=== PATIENT | female | born 1970 | race African-American/Black ===

== ENCOUNTER 2021-02-02 21:47 | Emergency (ER) | payer SELFPAY ==
[~2021-02-02] VITALS: Ht 172.7 cm; Wt 113.6 kg
[2021-02-02 23:32] LABS: COLLECTION METHOD CLEAN CATCH
[2021-02-02 23:37] LABS: PH 6 (5-8); SQUAMOUS EPITHELIAL None Seen /hpf; URINE APPEARANCE Clear; URINE BACTERIA None Seen /hpf; URINE BILIRUBIN Negative (NEGATIVE); URINE BLOOD 1+ (NEGATIVE); URINE COLOR Colorless; URINE GLUCOSE Negative (NEGATIVE); URINE KETONE Negative (NEGATIVE); URINE LEUKOCYTE ESTERASE Negative (NEGATIVE); URINE NITRATE Negative (NEGATIVE); URINE PROTEIN(semi-quant) Negative (NEGATIVE); URINE RBC 0-2 /hpf; URINE UROBILINOGEN Negative (NEGATIVE)
[2021-02-02 23:51] LABS: BASO % 0.5 % (0.0-2.0); EOS % 0.5 % (0-4.0); GRAN # 4.4 (1.4-6.5); GRAN % 75.3 % (42.2-75.2); HEMATOCRIT 32.5 % (37.0-47.0); HEMOGLOBIN 9.8 g/dl (12.5-16.0); LYMPH # 0.5 (1.2-3.4); LYMPH % 7.9 % (20.0-51.0); MEAN CELL VOLUME 66 fl (80.0-100.0); MEAN CORPUSCULAR HEMOGLOBIN 20 pg (27.0-31.0); MEAN CORPUSCULAR HGB CONC 30 g/dl (33.0-37.0); MEAN PLATELET VOLUME 10.4 fl (7.4-10.4); MONO # 0.9 (0.1-0.6); MONO % 15.3 % (1.7-9.3); PLATELET COUNT 340 K/mm3 (130-400); RED BLOOD COUNT 4.95 M/mm3 (4.10-5.30); REDCELL DISTRIBUTION WIDTH-CV 18.4 % (11.5-14.5)
[2021-02-03 00:06] LABS: ALBUMIN 4.1 gm/dL (3.5-5.0); BILIRUBIN,TOTAL 0.2 mg/dL (0.0-1.0); CALCIUM 9.2 mg/dL (8.4-10.2); CREATININE, serum 0.8 (0.52-1.25); POTASSIUM 3.9 mmol/L (3.4-5.0)
[2021-02-03 00:53] VITALS: BP 158/91; PULSE 100; TEMP 98.3
== END 2021-02-03 00:55 | disposition home or self-care (01) ==
LOC: COL.ER 21:47
PROVIDERS: Emergency Medicine Emergency Medical Services
DX: U07.1 COVID-19 (principal)

== ENCOUNTER 2021-02-08 20:01 | Emergency (ER) | payer SELFPAY ==
[~2021-02-08] VITALS: Ht 172.7 cm; Wt 118.2 kg
[2021-02-08 20:18] VITALS: TEMP 99
[2021-02-08 21:09] LABS: COLLECTION METHOD CLEAN CATCH
[2021-02-08 21:12] LABS: BASO % 0.2 % (0.0-2.0); GRAN # 2.4 (1.4-6.5); GRAN % 59.4 % (42.2-75.2); HEMOGLOBIN 10.7 g/dl (12.5-16.0); LYMPH # 1.1 (1.2-3.4); LYMPH % 26.2 % (20.0-51.0); MEAN CELL VOLUME 67 fl (80.0-100.0); MEAN CORPUSCULAR HEMOGLOBIN 20 pg (27.0-31.0); MEAN CORPUSCULAR HGB CONC 30 g/dl (33.0-37.0); MEAN PLATELET VOLUME 10.3 fl (7.4-10.4); MONO # 0.5 (0.1-0.6); PLATELET COUNT 275 K/mm3 (130-400); RED BLOOD COUNT 5.46 M/mm3 (4.10-5.30); REDCELL DISTRIBUTION WIDTH-CV 18.2 % (11.5-14.5)
[2021-02-08 21:21] LABS: MUCOUS Present /lpf; PH 5 (5-8); URINE APPEARANCE Hazy; URINE BACTERIA Rare /hpf; URINE BILIRUBIN Negative (NEGATIVE); URINE BLOOD Negative (NEGATIVE); URINE COLOR Yellow; URINE GLUCOSE Negative (NEGATIVE); URINE KETONE Negative (NEGATIVE); URINE LEUKOCYTE ESTERASE 2+ (NEGATIVE); URINE NITRATE Negative (NEGATIVE); URINE PROTEIN(semi-quant) Negative (NEGATIVE); URINE UROBILINOGEN Negative (NEGATIVE)
[2021-02-08 21:26] LABS: ALBUMIN 3.9 gm/dL (3.5-5.0); BILIRUBIN,TOTAL 0.2 mg/dL (0.0-1.0); CALCIUM 8.9 mg/dL (8.4-10.2); CREATININE, serum 0.78 (0.52-1.25); TOTAL PROTEIN 7.9 gm/dL (6.4-8.2)
[2021-02-08 21:32] LABS: HEMATOCRIT 36.3 % (37.0-47.0)
[2021-02-08] MEDS ORDERED: MACROBID 1100 MG/CAP PO (22:09)
[2021-02-08] MEDS ORDERED: PROAIR HFA0.09 MG/AC IH (23:24)
[2021-02-08 23:28] VITALS: BP 120/68; PULSE 62
== END 2021-02-08 23:35 | disposition home or self-care (01) ==
LOC: COL.ER 20:01
PROVIDERS: Nurse Practitioner Primary Care
DX: U07.1 COVID-19 (principal); N39.0 Urinary tract infection, site not specified
CPT/HCPCS: J7030

== ENCOUNTER 2021-02-12 00:23 | Emergency (ER) | payer SELFPAY ==
[~2021-02-12] VITALS: Ht 172.7 cm; Wt 109.1 kg
[~2021-02-12 00:23] MED LIST: MACROBID 1100 MG/CAP PO; PROAIR HFA0.09 MG/AC IH
[2021-02-12 00:37] VITALS: TEMP 97.8
[2021-02-12 01:10] LABS: BASO % 0.2 % (0.0-2.0); EOS # 0.1 (0.0-0.7); EOS % 1.7 % (0-4.0); GRAN # 3.7 (1.4-6.5); GRAN % 67.9 % (42.2-75.2); HEMOGLOBIN 10.2 g/dl (12.5-16.0); LYMPH % 18.5 % (20.0-51.0); MEAN CELL VOLUME 67 fl (80.0-100.0); MEAN CORPUSCULAR HEMOGLOBIN 20 pg (27.0-31.0); MEAN CORPUSCULAR HGB CONC 30 g/dl (33.0-37.0); MEAN PLATELET VOLUME 10.5 fl (7.4-10.4); MONO # 0.6 (0.1-0.6); MONO % 11.5 % (1.7-9.3); PLATELET COUNT 243 K/mm3 (130-400); RED BLOOD COUNT 5.18 M/mm3 (4.10-5.30); REDCELL DISTRIBUTION WIDTH-CV 17.7 % (11.5-14.5)
[2021-02-12 01:11] LABS: HEMATOCRIT 34.6 % (37.0-47.0)
[2021-02-12 01:19] LABS: ALANINE AMINOTRANSFERASE 29 U/L (4-34); ALBUMIN 3.6 gm/dL (3.5-5.0); ALKALINE PHOSPHATASE 76 U/L (50-136); ANION GAP 2 mmol/L (7-16); AST,SGOT 37 U/L (15-37); BILIRUBIN,TOTAL 0.2 mg/dL (0.0-1.0); BLOOD UREA NITROGEN 4 mg/dL (7-17); CALCIUM 8.9 mg/dL (8.4-10.2); CARBON DIOXIDE 28 mmol/L (22-30); CHLORIDE 105 mmol/L (98-107); CREATININE, serum 0.64 (0.52-1.25); GLUCOSE 112 mg/dL (74-106); SODIUM 135 mmol/L (137-145); TOTAL PROTEIN 7.3 gm/dL (6.4-8.2)
[2021-02-12 01:32] LABS: TROPONIN-I < 0.012 ng/mL (0.000-0.035)
[2021-02-12 05:10] VITALS: BP 129/68; PULSE 80
== END 2021-02-12 05:10 | disposition home or self-care (01) ==
LOC: COL.ER 00:23
PROVIDERS: Emergency Medicine
DX: U07.1 COVID-19 (principal); R07.89 Other chest pain
CPT/HCPCS: J1100; J1885; J7030